=== PATIENT | female | born 1955 | race Asian ===

== ENCOUNTER 2019-05-01 09:46 | Outpatient (CLI) | payer OTHER | END 2019-05-01 22:28 | disposition home or self-care (01) | LOC: MAMMO 09:46 | DX: Z12.31 Encounter for screening mammogram for malignant neoplasm of breast (principal) ==

== ENCOUNTER 2019-05-09 09:48 | Outpatient (CLI) | payer OTHER | END 2019-05-09 22:26 | disposition home or self-care (01) | LOC: MAMMO 09:48 | DX: R92.8 Other abnormal and inconclusive findings on diagnostic imaging of breast (principal) ==

== ENCOUNTER 2019-05-23 12:25 | Outpatient (CLI) | payer OTHER ==
[~2019-05-23] VITALS: Ht 30.5 cm; Wt 0.5 kg
== END 2019-05-23 21:48 | disposition home or self-care (01) ==
LOC: US 12:25
DX: N63.10 Unspecified lump in the right breast, unspecified quadrant (principal)